=== PATIENT | female | born 1955 | race Caucasian/White ===

== ENCOUNTER → 2020-12-05 09:42 | Outpatient (CLI) | payer MEDICARE, OTHER, SELFPAY | PROVIDERS: PCP Family Medicine; Referring Provider Physician Assistant; Visit Provider Physician Assistant | DX: R10.11 Right upper quadrant pain (principal); R11.0 Nausea; Z53.8 Procedure and treatment not carried out for other reasons ==

== ENCOUNTER → 2020-12-06 10:35 | Outpatient (CLI) | payer MEDICARE, OTHER, SELFPAY ==
--- NOTE | 2020-12-06 | DI.US.S_ITS ---
PROCEDURE: US ABDOMEN COMPLETE INDICATIONS: RUQ PAIN TECHNIQUE: Real-time scanning was performed of the abdominal and retroperitoneal organs, with image documentation. COMPARISON: [facility], US, US ABDOMEN COMPLETE, 04/27/2020, 9:48. FINDINGS: Liver: The liver demonstrates normal size. The liver demonstrates generalized moderately increased echogenicity. This decreases ultrasound sensitivity for detection of hepatic masses. Gallbladder: Small gallstones are again seen. The gallbladder wall is not thickened, measuring 3 mm or less. No specific pericholecystic fluid is seen. The sonographic Donato sign is negative. Biliary ducts: Intrahepatic bile ducts are non-dilated. Extrahepatic bile duct caliber measures 3 mm. Normal is 6-7 mm or less in diameter, or 10 mm or less post-cholecystectomy. Pancreas: Visualized portions of the pancreas are sonographically normal. Spleen: Spleen is normal in size and homogeneous in echotexture. Kidneys: Kidneys are normal in size and echotexture. Right kidney measures 11.8 cm long; left kidney measures 12.6 cm long. No hydronephrosis or nephrolithiasis. No solid masses. Aorta: Visualized aorta is normal in caliber at less than 3 cm. Iliacs: Not seen. IVC: Intrahepatic inferior vena cava is patent. Miscellaneous: No free abdominal fluid. This study is limited by body habitus and overlying bowel gas. IMPRESSION: Gallstones are seen, yet without additional sonographic signs of cholecystitis. Negative for biliary dilatation. Please correlate with physical examination findings, patient presentation, and laboratory values. The liver demonstrates increased echogenicity. This finding is nonspecific, yet it is most commonly attributed to fatty infiltration. Dictated by: Scar Heart M.D. on 12/06/2020 at 11:03 Approved by: Scar Heart M.D. on 12/06/2020 at 11:05
== END ==
PROVIDERS: PCP Family Medicine; Referring Provider Physician Assistant; Visit Provider Physician Assistant
DX: R10.11 Right upper quadrant pain (principal); K80.20 Calculus of gallbladder without cholecystitis without obstruction
CPT/HCPCS: 76700

== ENCOUNTER → 2022-12-11 12:20 | Outpatient (CLI) | payer MEDICARE, OTHER, SELFPAY ==
--- NOTE | 2022-12-11 12:23 | DI.RAD.S_ITS ---
PROCEDURE: XR ANKLE LT MIN 3V INDICATIONS: LEFT ANKLE PAIN TECHNIQUE: 3 views of the ankle were acquired. COMPARISON: None. FINDINGS: Bones: No fractures or dislocations. Ankle mortise is normally aligned. No suspicious bony lesions. Marked ankle joint osteoarthritis, with osteophytosis, subchondral sclerosis and bony deformity of the tibiotalar joint space. Soft tissues: No tibiotalar joint effusion. Achilles tendon appears normal. IMPRESSION: Marked ankle joint osteoarthritis. No displaced fracture. Dictated by: Modesto Phillips M.D. on 12/11/2022 at 12:45 Approved by: Modesto Phillips M.D. on 12/11/2022 at 12:46
--- NOTE | 2022-12-11 12:23 | DI.RAD.S_ITS ---
PROCEDURE: XR KNEE LT 3V INDICATIONS: LEFT ANKLE PAIN TECHNIQUE: 3 views of the knee were acquired. COMPARISON: None. FINDINGS: Bones: No fractures or dislocations. No suspicious bony lesions. Tricompartmental joint space narrowing with associated osteophytosis. Soft tissues: No joint effusion. No suspicious soft tissue calcifications. IMPRESSION: [id number] tricompartmental osteoarthritis. Dictated by: Modesto Phillips M.D. on 12/11/2022 at 12:47 Approved by: Modesto Phillips M.D. on 12/11/2022 at 12:48
== END ==
PROVIDERS: PCP Family Medicine; Referring Provider Physical Medicine & Rehabilitation; Visit Provider Physical Medicine & Rehabilitation
DX: M17.0 Bilateral primary osteoarthritis of knee (principal); M19.072 Primary osteoarthritis, left ankle and foot; M19.071 Primary osteoarthritis, right ankle and foot; M25.572 Pain in left ankle and joints of left foot; Z96.651 Presence of right artificial knee joint
CPT/HCPCS: 20611; 73562; 73610; 99214; J7318

== ENCOUNTER 2024-10-21 10:14 | Emergency (ER) | payer MEDICARE, OTHER, SELFPAY ==
[2024-10-21] VITALS (9 sets, daily range): BP systolic 168–213; BP diastolic 79–98; PULSE 89–99; RESP 18; TEMP 36.7; O2SAT 95–98; BMI 34.4
--- NOTE | 2024-10-21 10:42 | PC.NURSE ---
small scratch noted, bright red blood on bandage, no bleeding at this time, new bandage in place.
--- NOTE | 2024-10-21 11:57 | ED.LOWEXIN ---
HPI - Extremity Injury (Lower) General Chief Complaint: Extremity Injury, Lower Stated Complaint: Varicose vein bleeding, rt leg Time Seen by Provider: 10/21/24 10:22 Source: patient and EMS Mode of arrival: EMS History of Present Illness HPI Narrative: 69-year-old woman with long history of lower extremity varicosities, various vein stripping, laser treatments etcetera. She scratched the anterior surface of the right chatman and 1 of the exposed veins is bleeding. She has placed some pressure on it but still continues to actively bleed. Comes in for further evaluation. She is not having any pain Related Data Home Medications ?Medication ?Instructions ?Recorded ?Confirmed celecoxib 200 mg capsule 200 mg PO DAILY 12/11/22 12/11/22 omeprazole 20 mg capsule,delayed 20 mg PO DAILY 12/11/22 12/11/22 release sertraline 50 mg tablet 50 mg PO DAILY 12/11/22 12/11/22 tramadol 37.5 mg-acetaminophen 325 1 - 2 tab PO DAILY 12/11/22 12/11/22 mg tablet Allergies Allergy/AdvReac Type Severity Reaction Status Date / Time No Known Drug Allergies Allergy Unverified 10/21/24 10:34 Patient History Medical History (Updated 10/21/24 @ 12:03 by Esther Escobar MD) Degenerative joint disease of both ankles and feet Left knee DJD Surgical History (Updated 12/11/22 @ 14:33 by Gerald Nuñez DO) S/P total knee arthroplasty H/O vascular surgery Family History Family/Other No pertinent family history Social History (System 09/18/22 @ 11:42 by Trisha Lagos) Smoking Status: Never smoker Smoking Status: Never smoker Exam Initial Vital Signs Initial Vital Signs: Vital Signs Temperature 98.0 F 10/21/24 10:34 Pulse Rate 96 H 10/21/24 10:34 Respiratory Rate 18 10/21/24 10:34 Blood Pressure 213/98 H 10/21/24 10:34 Pulse Oximetry 98 10/21/24 10:34 Oxygen Delivery Method Room Air 10/21/24 10:34 General: Alert appropriate in no acute distress Respiratory: Able to speak in full sentences, no obvious respiratory distress Skin: No obvious rashes, warm and dry Neurologic: Grossly intact no obvious asymmetries or abnormalities Psych: appropriate insight and affect, cooperative Extremity: Exposed superficial varicosities right anterior chatman with 1 that has a small abrasion allowing it to bleed. It is still oozing despite an extended period of time with pressure. No obvious superficial thrombophlebitis, redness or pain Procedures Laceration Repair Right chatman varicosity: Time of procedure: 11:59 Site: lower extremity Side (If applicable): right Size (cm): 0.3 Description: other (Bleeding varicosity) Depth: simple, single layer Local Anesthetic: lidocaine 1% Amount of anesthesia used (mL): 1 Pre-repair: cleansed with chlorhexadine Skin layer closed with: nylon Skin layer suture size: 4-0 Number of sutures: 1 Technique: horizontal mattress Course Vital Signs Vital signs: Vital Signs - 8 hr 10/21/24 10:34 Temperature 98.0 F Pulse Rate 96 H Respiratory Rate 18 Blood Pressure 213/98 H Pulse Oximetry 98 Oxygen Delivery Method Room Air MDM - Extremity Injury (Lower) MDM Narrative Medical decision making narrative: 69-year-old woman with long history of varicose veins. Scratched her right chatman and caused bleeding in 1 of the very superficial veins. Was not a we will get it stopped completely with adequate pressure. Shared decision-making we chose to place a single suture, figure of 8 over sewn to control the bleeding. This worked quite well. She tolerated the procedure well. Recommended suture out in about a week. Reviewed reasons to return to the emergency department and what infection and other complications would look like. Questions answered she is safe for discharge Discharge Plan Departure Patient Disposition: Home Clinical Impression: Bleeding from varicose vein Instructions: DI for Varicose Veins Activity Restrictions/Additional Instructions: Thank you for coming in today You scratched the very superficial skin over 1 of your varicose veins and cause the vein open up and bleed. This is a vein, not in artery. There is enough pressure it was bleeding a moderate amount. With a pressure dressing, the bleeding was still continuing I used a single suture in a figure of 8 format to pull the skin over the top of the bleeding area to help keep it compressed. This worked nicely. The stitch can be removed on or about October 28. If you find that you are getting worse or develop any new symptoms, please feel free to return to the emergency department for further evaluation. Prescriptions: No Action celecoxib 200 mg capsule 200 mg PO DAILY tramadol-acetaminophen 37.5-325 mg tablet 1 - 2 tab PO DAILY sertraline 50 mg tablet 50 mg PO DAILY omeprazole 20 mg capsule,delayed release(DR/EC) 20 mg PO DAILY Referrals: Ata Causey MD [Primary Care Provider, Family Practice] Stand Alone Forms: Patient Portal/API
== END 2024-10-21 12:12 | disposition home or self-care (01) ==
PROVIDERS: Emergency Provider Emergency Medicine; PCP Family Medicine
DX: I83.891 Varicose veins of right lower extremity with other complications (principal)
CPT/HCPCS: 12001; 99281; 99283